=== PATIENT | female | born 1995 | race Two or more races ===

== ENCOUNTER 2017-04-29 04:39 | Emergency (ER) | payer MEDICAID ==
[~2017-04-29] VITALS: Ht 157.5 cm; Wt 66.0 kg
[2017-04-29 04:42] VITALS: BP 110/63
== END 2017-04-29 10:10 | disposition left against medical advice (07) ==
LOC: ER 10:03
DX: M54.9 Dorsalgia, unspecified (principal); Z53.21 Procedure and treatment not carried out due to patient leaving prior to being seen by health care provider

== ENCOUNTER 2018-12-01 22:28 | Emergency (ER) | payer MEDICAID ==
[~2018-12-01] VITALS: Ht 157.5 cm; Wt 66.5 kg
[2018-12-01 22:41] VITALS: BP 125/86
[2018-12-01 23:55] LABS: CLARITY URINE CLEAR (CLEAR); COLOR URINE YELLOW (YELLOW); KETONES URINE NEGATIVE (NEGATIVE); LEUKOCYTE ESTERASE URINE TRACE (NEGATIVE); NITRITE URINE NEGATIVE (NEGATIVE); OCCULT BLOOD URINE NEGATIVE (NEGATIVE); PROTEIN URINE NEGATIVE (NEGATIVE); SPECIFIC GRAVITY URINE 1.007 (1.005-1.030); UROBILINOGEN URINE 0.2 E.U./dL (0.2-1.0)
== END 2018-12-02 03:07 | disposition left against medical advice (07) ==
LOC: ER 22:48
DX: Z53.21 Procedure and treatment not carried out due to patient leaving prior to being seen by health care provider (principal)
CPT/HCPCS: 81025